=== PATIENT | male | born 1975 | race Caucasian/White ===

== ENCOUNTER 2018-09-20 12:21 | Outpatient (CLI) | payer OTHER ==
--- NOTE | 2018-09-20 13:01 | RAD ---
XR Lumbar Spine 2 Or 3 View: 09/20/2018 12:32 PM CLINICAL INDICATION: Disability evaluation COMPARISON: None. FINDINGS: Fracture:No fracture. Arthropathy:Mild degenerative change of the lumbar spine Incidental findings:None of significance. IMPRESSION: 1. No acute osseous abnormality.
--- NOTE | 2018-09-20 13:07 | RAD ---
XR Foot Rt 2 View: 09/20/2018 12:31 PM CLINICAL INDICATION: Disability evaluation COMPARISON: None. FINDINGS: Fracture:No fracture. Arthropathy:Mild arthropathy. Incidental findings:None of significance. IMPRESSION: 1. No acute osseous abnormality.
== END 2018-09-20 12:22 | disposition home or self-care (01) ==
LOC: NAV RAD 12:21
PROVIDERS: ATTEND Family Medicine
DX: M54.5 Low back pain (principal); G60.9 Hereditary and idiopathic neuropathy, unspecified
CPT/HCPCS: 72100